=== PATIENT | male | born 1945 | race American Indian/Alaskan Native ===

== ENCOUNTER 2016-05-07 16:00 | Inpatient (IN) | payer MEDICARE, OTHER ==
[~2016-05-07] VITALS: Ht 167.6 cm; Wt 100.3 kg
[~2016-05-07 16:00] MED LIST: ASPI-621 PO; ASPI325T4 PO; ASPI81TA18 PO; ATOR40TA PO; ATOR40TA78 PO; CARV-39 PO; CARV6.2512 PO; CARV6.252 PO; CEFD300C2 PO; CHOL200024 PO; DOCU100T3 PO; FERR325T20 PO; FURO-92 PO; FURO-93 PO; FURO40TA6 PO; FURO80TA3 PO; GABA100C PO; GABA100C8 PO; HYDR-3144 PO; HYDR-3240 PO; ISOS30TA8 PO; LEVO500T33 PO; LINA5TAB PO; LISI-167 PO; LOSA25TA2 PO; LOSA25TA5 PO; LOSA50TA6 PO; MAGN300C PO; METF500T4 PO; METR500T PO; OMEG1CAP34 PO; OMEP-110 PO; OXYC-302 PO; OXYC1TAB7 PO; PANT40TA5 PO; PENT400T2 PO; POTA20TA14 PO; POTA20TA89 PO; SENN1TAB67 PO; SIMV40TA PO; SUCR1ORA11 PO; TAMS0.4C2 PO
[2016-05-07] MEDS ORDERED: SODIUM CHLORIDE FLUSH 10ML SYR IVF ONE (16:30)
[2016-05-07] MEDS ORDERED: ASPIRIN 81 MG TABLET CHEW ONE (16:30)
[2016-05-07] MEDS ORDERED: ASPIRIN 81 MG TABLET CHEW PO ONE (16:30)
[2016-05-07] MEDS ORDERED: FUROSEMIDE 40 MG/4 ML ONE (16:30)
[2016-05-07] MEDS ORDERED: FUROSEMIDE 40 MG/4 ML IVPush ONE (16:30)
[2016-05-07] MEDS ORDERED: CLOP75TA PO (16:54)
[2016-05-07] MEDS ORDERED: BUME0.5T PO (16:54)
[2016-05-07 17:09] LABS: HEMOGLOBIN 11.1 g/dL (13.7-18.0)
[2016-05-07 17:14] LABS: BLOOD UREA NITROGEN 19 mg/dL (7-18)
[2016-05-07 17:42] LABS: IS PT STATUS REG ER OR PRE ER? YES
[2016-05-07] MEDS ORDERED: POLYETHYLENE GLYCOL 17 GM PACKET PO PRN (19:30)
[2016-05-07] MEDS ORDERED: ACETAMINOPHEN 325 MG TABLET PO PRN (19:30)
[2016-05-07] MEDS ORDERED: BISACODYL 10 MG SUPP PR PRN (19:30)
[2016-05-07] MEDS ORDERED: TAMSULOSIN 0.4 MG CAP.ER.24H PO SCH (19:30)
[2016-05-07] MEDS ORDERED: DOCUSATE 100 MG CAPSULE PO PRN (19:30)
[2016-05-07 20:12] VITALS: BP 126/52
[2016-05-07 20:38] LABS: IS PT STATUS REG ER OR PRE ER? NO
[2016-05-07] MEDS: INSULIN REGULAR 100 UNITS/ML, 3ML VIAL SQ-INSULIN SCH (21:00)
[2016-05-07] MEDS: HEPARIN 5,000 UNITS/ML, 1ML SQ SCH (21:22)
[2016-05-07] MEDS: GABAPENTIN 100 MG CAPSULE PO SCH (21:22)
[2016-05-07] MEDS: ATORVASTATIN 40 MG TABLET PO SCH (21:22)
[2016-05-08 00:42] VITALS: BP 97/50
[2016-05-08 02:34] LABS: IS PT STATUS REG ER OR PRE ER? NO
[2016-05-08] MEDS: HEPARIN 5,000 UNITS/ML, 1ML SQ SCH ×3 (04:08→19:21)
[2016-05-08 05:46] LABS: HEMOGLOBIN 9.8 g/dL (13.7-18.0)
[2016-05-08] MEDS: CARVEDILOL 6.25 MG TABLET PO SCH ×2 (06:00→18:02)
[2016-05-08 06:02] LABS: ASPARTATE AMINO TRANSFERASE 27 U/L (15-37); BLOOD UREA NITROGEN 20 mg/dL (7-18)
[2016-05-08 06:52] VITALS: BP 111/49
[2016-05-08] MEDS: INSULIN REGULAR 100 UNITS/ML, 3ML VIAL SQ-INSULIN SCH ×4 (07:00→20:43)
[2016-05-08] MEDS: POTASSIUM CHLORIDE 20 MEQ TAB.ER.PRT PO SCH (08:39)
[2016-05-08] MEDS: GABAPENTIN 100 MG CAPSULE PO SCH ×2 (08:39→20:43)
[2016-05-08] MEDS: LACTULOSE 20 GM/30 ML UDC PO SCH ×2 (08:39→20:43)
[2016-05-08] MEDS: CLOPIDOGREL 75 MG TABLET PO SCH (08:39)
[2016-05-08] MEDS: PANTOPROZOLE 40MG TABLET PO SCH (08:39)
[2016-05-08] MEDS: ASPIRIN 325 MG TABLET PO SCH (08:40)
[2016-05-08] MEDS: FUROSEMIDE 40 MG/4 ML IV SCH ×2 (08:40→18:01)
[2016-05-08] MEDS: ISOSORBIDE MONONITRATE ER 30 MG TABLET PO SCH (08:40)
[2016-05-08 12:55] VITALS: BP 163/74
[2016-05-08 17:58] VITALS: BP 166/74
[2016-05-08 19:17] VITALS: BP 163/70
[2016-05-08] MEDS: ATORVASTATIN 40 MG TABLET PO SCH (20:43)
[2016-05-09 01:25] VITALS: BP 131/57
[2016-05-09] MEDS: HEPARIN 5,000 UNITS/ML, 1ML SQ SCH ×3 (03:24→22:09)
[2016-05-09] MEDS: CARVEDILOL 6.25 MG TABLET PO SCH ×2 (05:52→17:44)
[2016-05-09 06:15] LABS: BLOOD UREA NITROGEN 15 mg/dL (7-18)
[2016-05-09] MEDS: INSULIN REGULAR 100 UNITS/ML, 3ML VIAL SQ-INSULIN SCH ×2 (07:00→11:00)
[2016-05-09 07:34] VITALS: BP_SYST 104; BP_SYST 122; BP_DIAS 62; BP_DIAS 65
[2016-05-09] MEDS: ASPIRIN 325 MG TABLET PO SCH (09:08)
[2016-05-09] MEDS: CLOPIDOGREL 75 MG TABLET PO SCH (09:08)
[2016-05-09] MEDS: GABAPENTIN 100 MG CAPSULE PO SCH ×2 (09:08→22:09)
[2016-05-09] MEDS: FUROSEMIDE 40 MG/4 ML IV SCH ×2 (09:08→17:44)
[2016-05-09] MEDS: POTASSIUM CHLORIDE 20 MEQ TAB.ER.PRT PO SCH (09:08)
[2016-05-09] MEDS: PANTOPROZOLE 40MG TABLET PO SCH (09:09)
[2016-05-09] MEDS: ISOSORBIDE MONONITRATE ER 30 MG TABLET PO SCH (09:09)
[2016-05-09] MEDS: LACTULOSE 20 GM/30 ML UDC PO SCH ×2 (09:09→22:09)
[2016-05-09] MEDS ORDERED: METOLAZONE 2.5 MG TABLET PO ONE (11:30)
[2016-05-09] MEDS: LOSARTAN 50MG TABLET PO SCH (12:15)
[2016-05-09 12:39] VITALS: BP 169/75
[2016-05-09 19:46] VITALS: BP 151/69
[2016-05-09] MEDS: ATORVASTATIN 40 MG TABLET PO SCH (22:09)
[2016-05-10 03:49] VITALS: BP 146/81
[2016-05-10 05:32] LABS: BLOOD UREA NITROGEN 11 mg/dL (7-18)
[2016-05-10] MEDS: HEPARIN 5,000 UNITS/ML, 1ML SQ SCH ×2 (05:45→17:33)
[2016-05-10] MEDS: CARVEDILOL 6.25 MG TABLET PO SCH ×2 (05:45→17:33)
[2016-05-10 05:48] VITALS: BP 158/68
[2016-05-10 08:13] VITALS: BP 118/53
[2016-05-10] MEDS: PANTOPROZOLE 40MG TABLET PO SCH (09:28)
[2016-05-10] MEDS: LACTULOSE 20 GM/30 ML UDC PO SCH ×2 (09:28→20:43)
[2016-05-10] MEDS: GABAPENTIN 100 MG CAPSULE PO SCH ×2 (09:28→20:43)
[2016-05-10] MEDS: POTASSIUM CHLORIDE 20 MEQ TAB.ER.PRT PO SCH (09:28)
[2016-05-10] MEDS: FUROSEMIDE 40 MG/4 ML IV SCH ×2 (09:28→17:33)
[2016-05-10] MEDS: CLOPIDOGREL 75 MG TABLET PO SCH (09:28)
[2016-05-10] MEDS: ISOSORBIDE MONONITRATE ER 30 MG TABLET PO SCH (09:28)
[2016-05-10] MEDS: ASPIRIN 325 MG TABLET PO SCH (09:29)
[2016-05-10] MEDS: LOSARTAN 50MG TABLET PO SCH (09:29)
[2016-05-10 13:37] VITALS: BP 154/64
[2016-05-10 19:45] VITALS: BP 123/48
[2016-05-10] MEDS: ATORVASTATIN 40 MG TABLET PO SCH (20:43)
[2016-05-11] MEDS: HEPARIN 5,000 UNITS/ML, 1ML SQ SCH (01:37)
[2016-05-11 01:39] VITALS: BP 120/48
[2016-05-11] MEDS: CARVEDILOL 6.25 MG TABLET PO SCH (05:41)
[2016-05-11 05:44] LABS: BLOOD UREA NITROGEN 8 mg/dL (7-18)
[2016-05-11 05:48] LABS: ASPARTATE AMINO TRANSFERASE 31 U/L (15-37)
[2016-05-11 05:53] LABS: HEMOGLOBIN 10.2 g/dL (13.7-18.0)
[2016-05-11 08:00] VITALS: BP 129/52
[2016-05-11] MEDS ORDERED: ASPI-621 PO ×2 (08:02→09:03)
[2016-05-11] MEDS: LACTULOSE 20 GM/30 ML UDC PO SCH (08:46)
[2016-05-11] MEDS: FUROSEMIDE 40 MG/4 ML IV SCH (08:46)
[2016-05-11] MEDS: CLOPIDOGREL 75 MG TABLET PO SCH (08:47)
[2016-05-11] MEDS: LOSARTAN 50MG TABLET PO SCH (08:47)
[2016-05-11] MEDS: PANTOPROZOLE 40MG TABLET PO SCH (08:47)
[2016-05-11] MEDS: GABAPENTIN 100 MG CAPSULE PO SCH (08:47)
[2016-05-11] MEDS: ASPIRIN 325 MG TABLET PO SCH (08:47)
[2016-05-11] MEDS: ISOSORBIDE MONONITRATE ER 30 MG TABLET PO SCH (08:47)
[2016-05-11] MEDS ORDERED: FURO-92 PO (08:58)
[2016-05-11] MEDS ORDERED: FURO40TA6 PO (09:04)
[2016-05-11] MEDS ORDERED: POTA20TA91 PO (09:22)
== END 2016-05-11 09:55 | disposition home or self-care (01) | DRG 291 ==
LOC: ED 18:08 → EDIP 18:24 → 4EST 20:06 → DCLOUNGE 05-11 09:37
PROVIDERS: ADMIT Internal Medicine
PROC: 0T9B70Z Drainage of Bladder with Drainage Device, Via Natural or Artificial Opening (ICD-10-PCS; principal; 2016-05-07)
DX: I11.0 Hypertensive heart disease with heart failure (principal); E43 Unspecified severe protein-calorie malnutrition; N17.9 Acute kidney failure, unspecified; R65.10 Systemic inflammatory response syndrome (SIRS) of non-infectious origin without acute organ dysfunction; I50.43 Acute on chronic combined systolic (congestive) and diastolic (congestive) heart failure; I25.10 Atherosclerotic heart disease of native coronary artery without angina pectoris; E78.5 Hyperlipidemia, unspecified; N40.0 Benign prostatic hyperplasia without lower urinary tract symptoms; E55.9 Vitamin D deficiency, unspecified; K21.9 Gastro-esophageal reflux disease without esophagitis; D50.9 Iron deficiency anemia, unspecified; E11.9 Type 2 diabetes mellitus without complications; I73.9 Peripheral vascular disease, unspecified; M19.90 Unspecified osteoarthritis, unspecified site; Z96.652 Presence of left artificial knee joint; K70.30 Alcoholic cirrhosis of liver without ascites; I35.0 Nonrheumatic aortic (valve) stenosis; F10.10 Alcohol abuse, uncomplicated; D69.6 Thrombocytopenia, unspecified; Z68.35 Body mass index [BMI] 35.0-35.9, adult; Z90.49 Acquired absence of other specified parts of digestive tract; I25.2 Old myocardial infarction; Z95.1 Presence of aortocoronary bypass graft
CPT/HCPCS: 36415; 71010; 80048; 80053; 80061; 80162; 81003; 82040; 82140; 82962; 83735; 83880; 84100; 84484; 85025; 85610; 93005; 93970; 96374; J1644; J1940